=== PATIENT | female | born 1940 | race Caucasian/White ===

== ENCOUNTER 2016-10-29 14:56 | Observation (INO) | payer MEDICARE, BC ==
[~2016-10-29] VITALS: Ht 152.4 cm; Wt 101.7 kg
[~2016-10-29 14:56] MED LIST: ASPIRIN 81M81 MG/TA2 PO; ASPIRIN E.C. 8181 MG PO; BIOTIN1 POW PO; CALCIUM 500500 MG PO; CALCIUM 600/VIT1 CA1 PO; COUMADIN 22.5 MG/TAB PO; COUMADIN 5MG5 MG/TAB PO; CRESTOR 10MG10 MG PO; DETROL LA 2 MG2 MG PO; DETROL LA2 PO; DITROPAN 5MG TAB5 MG PO; FOLIC ACID 11 MG/TA1 PO; HCTZ; HCTZ 25MG TAB25 MG PO; LOPRESSOR 225 MG/TAB PO; MERIBIN5 MG PO; MULTAQ400 MG PO; NICOTINIC ACID PO; PRAVACHOL40 MG PO; TAMBOCOR50 MG PO; VISION VITAMINS1 TA1 PO; XARELTO20 MG PO; ZESTRIL 10MG10 MG PO; ZITHROMAX Z PA250 MG PO
[2016-10-29 15:41] LABS: BASO % 0.3 % (0.0-2.0); EOS % 0.9 % (0-4.0); GRAN # 1.7 (1.4-6.5); GRAN % 54.5 % (42.2-75.2); HEMATOCRIT 37.4 % (37.0-47.0); LYMPH # 0.8 (1.2-3.4); LYMPH % 23.4 % (20.0-51.0); MEAN CELL VOLUME 89 fl (80.0-100.0); MEAN CORPUSCULAR HEMOGLOBIN 31 pg (27.0-31.0); MEAN CORPUSCULAR HGB CONC 35 g/dl (33.0-37.0); MEAN PLATELET VOLUME 10.5 fl (7.4-10.4); MONO # 0.7 (0.1-0.6); MONO % 20.6 % (1.7-9.3); PLATELET COUNT 142 K/mm3 (130-400); REDCELL DISTRIBUTION WIDTH-CV 12.6 % (11.5-14.5); WHITE BLOOD COUNT 3.2 K/mm3 (4.8-10.8)
[2016-10-29 15:48] LABS: INR 2.4 (0.8-3.0); PROTHROMBIN TIME 27.9 SECONDS (9.7-12.8)
[2016-10-29 15:51] LABS: PARTIAL THROMBOPLASTIN TIME 53.4 SECONDS (26.0-37.0)
[2016-10-29 15:58] LABS: ADJUSTED CALCIUM 9.3 mg/dL (8.4-10.2); ALBUMIN 4.1 gm/dL (3.5-5.0); BILIRUBIN,TOTAL 0.5 mg/dL (0.0-1.0); CALCIUM 9.4 mg/dL (8.4-10.2); CREATININE, serum 1.01 mg/dL (0.52-1.25); POTASSIUM 3.8 mmol/L (3.4-5.0); TOTAL PROTEIN 7.2 gm/dL (6.4-8.2)
[2016-10-29 16:09] LABS: TROPONIN-I 0.022 ng/mL (0.000-0.034)
[2016-10-29] MEDS ORDERED: ISOSOURCE 1.51000 M1 PO (17:35)
[2016-10-29] MEDS ORDERED: METAGLIP 2.5 MG1 TA1 PO (17:35)
[2016-10-29] MEDS ORDERED: TOPROL XL100 MG PO (17:36)
[2016-10-29] MEDS ORDERED: ELIQUIS 5MG PO (17:36)
[2016-10-29] MEDS ORDERED: COUMADIN 22.5 MG/TAB PO (18:19)
[2016-10-29] MEDS ORDERED: COUMADIN 5MG5 MG/TAB PO (18:20)
[2016-10-29] MEDS ORDERED: TOVIAZ4 MG PO (18:21)
[2016-10-29 20:45] VITALS: BP 128/75; PULSE 106
[2016-10-29 22:49] VITALS: BP 128/75; PULSE 106; TEMP 99.6
[2016-10-30] VITALS (12 sets, daily range): BP systolic 112–146; BP diastolic 49–83; PULSE 45–103; TEMP 98.3–99.6
[2016-10-30 05:53] LABS: INR 2.4 (0.8-3.0); PROTHROMBIN TIME 27.4 SECONDS (9.7-12.8)
[2016-10-30 06:02] LABS: CALCIUM 9.1 mg/dL (8.4-10.2); CREATININE, serum 1.03 mg/dL (0.52-1.25); POTASSIUM 3.5 mmol/L (3.4-5.0)
[2016-10-30 06:30] LABS: THYROID STIMULATING HORMONE 1.83 uIU/mL (0.465-4.680)
[2016-10-30] MEDS ORDERED: TAMBOCOR 1100 MG/TAB PO (09:33)
== END 2016-10-30 11:18 | disposition home or self-care (01) ==
LOC: COL.ER 14:56 → IMCU 17:02 → MEDICAL 17:02 → IMCU 20:36
PROVIDERS: Emergency Medicine; Family Medicine
DX: I48.91 Unspecified atrial fibrillation (principal); I10 Essential (primary) hypertension; E78.5 Hyperlipidemia, unspecified; Z85.820 Personal history of malignant melanoma of skin
CPT/HCPCS: G0378; J0696; J2250; J3010; J7050

== ENCOUNTER 2016-11-11 10:46 | Emergency (ER) | payer MEDICARE, BC ==
[~2016-11-11] VITALS: Ht 172.7 cm; Wt 100.0 kg
[~2016-11-11 10:46] MED LIST changes: +ELIQUIS 5MG PO; +ISOSOURCE 1.51000 M1 PO; +METAGLIP 2.5 MG1 TA1 PO; +TAMBOCOR 1100 MG/TAB PO; +TOPROL XL100 MG PO; +TOVIAZ4 MG PO
[2016-11-11 10:52] VITALS: TEMP 97.4
[2016-11-11 11:13] LABS: BASO % 0.3 % (0.0-2.0); EOS # 0.2 (0.0-0.7); EOS % 2.7 % (0-4.0); GRAN # 3.7 (1.4-6.5); GRAN % 59.8 % (42.2-75.2); HEMATOCRIT 38.9 % (37.0-47.0); LYMPH # 1.6 (1.2-3.4); LYMPH % 25.8 % (20.0-51.0); MEAN CELL VOLUME 90 fl (80.0-100.0); MEAN CORPUSCULAR HEMOGLOBIN 30 pg (27.0-31.0); MEAN CORPUSCULAR HGB CONC 33 g/dl (33.0-37.0); MEAN PLATELET VOLUME 10.2 fl (7.4-10.4); MONO # 0.7 (0.1-0.6); MONO % 10.8 % (1.7-9.3); PLATELET COUNT 234 K/mm3 (130-400); RED BLOOD COUNT 4.33 M/mm3 (4.10-5.30); REDCELL DISTRIBUTION WIDTH-CV 12.7 % (11.5-14.5); WHITE BLOOD COUNT 6.2 K/mm3 (4.8-10.8)
[2016-11-11 11:17] LABS: INR 2.3 (0.8-3.0); PROTHROMBIN TIME 25.7 SECONDS (9.7-12.8)
[2016-11-11 11:20] LABS: PARTIAL THROMBOPLASTIN TIME 44.7 SECONDS (26.0-37.0)
[2016-11-11 11:56] LABS: ADJUSTED CALCIUM 9.2 mg/dL (8.4-10.2); ALBUMIN 4.1 gm/dL (3.5-5.0); BILIRUBIN,TOTAL 0.8 mg/dL (0.0-1.0); CALCIUM 9.3 mg/dL (8.4-10.2); CREATININE, serum 1.09 mg/dL (0.52-1.25); POTASSIUM 3.8 mmol/L (3.4-5.0); TOTAL PROTEIN 7.2 gm/dL (6.4-8.2)
[2016-11-11 12:15] LABS: TROPONIN-I 0.119 ng/mL (0.000-0.034)
[2016-11-11 13:43] VITALS: BP 109/75; PULSE 155
== END 2016-11-11 13:46 | disposition short-term general hospital (02) ==
LOC: COL.ER 10:46
PROVIDERS: Family Medicine
DX: R06.02 Shortness of breath (principal); I48.91 Unspecified atrial fibrillation; Z79.01 Long term (current) use of anticoagulants; I44.7 Left bundle-branch block, unspecified; I10 Essential (primary) hypertension; E11.9 Type 2 diabetes mellitus without complications
CPT/HCPCS: J1644; J7030

== ENCOUNTER 2017-01-05 14:26 | Emergency (ER) | payer MEDICARE, BC, OTHER ==
[~2017-01-05] VITALS: Ht 172.7 cm; Wt 95.5 kg
[2017-01-05 14:32] VITALS: TEMP 96.8
[2017-01-05 15:05] LABS: INR 2.6 (0.8-3.0); PROTHROMBIN TIME 29.7 SECONDS (9.7-12.8)
[2017-01-05 15:08] LABS: BASO % 0.7 % (0.0-2.0); EOS # 0.1 (0.0-0.7); EOS % 2.1 % (0-4.0); GRAN # 3.1 (1.4-6.5); GRAN % 54.6 % (42.2-75.2); HEMATOCRIT 39.7 % (37.0-47.0); HEMOGLOBIN 13.6 g/dl (12.5-16.0); LYMPH % 34.9 % (20.0-51.0); MEAN CELL VOLUME 89 fl (80.0-100.0); MEAN CORPUSCULAR HEMOGLOBIN 31 pg (27.0-31.0); MEAN CORPUSCULAR HGB CONC 34 g/dl (33.0-37.0); MEAN PLATELET VOLUME 10.7 fl (7.4-10.4); MONO # 0.4 (0.1-0.6); MONO % 7.5 % (1.7-9.3); PLATELET COUNT 254 K/mm3 (130-400); RED BLOOD COUNT 4.45 M/mm3 (4.10-5.30); WHITE BLOOD COUNT 5.6 K/mm3 (4.8-10.8)
[2017-01-05 15:13] LABS: ALBUMIN 4.6 gm/dL (3.5-5.0); BILIRUBIN,TOTAL 0.7 mg/dL (0.0-1.0); CALCIUM 9.5 mg/dL (8.4-10.2); CREATININE, serum 1.73 mg/dL (0.52-1.25); POTASSIUM 3.9 mmol/L (3.4-5.0); TOTAL PROTEIN 7.7 gm/dL (6.4-8.2)
[2017-01-05 15:26] LABS: TROPONIN-I 0.013 ng/mL (0.000-0.034)
[2017-01-05] MEDS ORDERED: CORDARONE200 MG/TAB PO (15:35)
[2017-01-05 16:40] LABS: PH 6 (5-8); SQUAMOUS EPITHELIAL 0-2 /hpf; URINE APPEARANCE Clear; URINE BACTERIA None Seen /hpf; URINE BILIRUBIN Negative (NEGATIVE); URINE BLOOD Negative (NEGATIVE); URINE COLOR Yellow; URINE GLUCOSE Negative (NEGATIVE); URINE KETONE Negative (NEGATIVE); URINE RBC 0-2 /hpf; URINE UROBILINOGEN Negative (NEGATIVE); URINE WBC 0-2 /hpf
[2017-01-05 18:17] VITALS: BP 128/79; PULSE 92
== END 2017-01-05 18:19 | disposition home or self-care (01) ==
LOC: COL.ER 14:26
PROVIDERS: Emergency Medicine
DX: I48.91 Unspecified atrial fibrillation (principal); I10 Essential (primary) hypertension; Z79.01 Long term (current) use of anticoagulants; N28.9 Disorder of kidney and ureter, unspecified
CPT/HCPCS: J7030

== ENCOUNTER 2017-01-07 06:31 | Day surgery (SDC) | payer MEDICARE, BC ==
[~2017-01-07] VITALS: Ht 172.8 cm; Wt 97.0 kg
[~2017-01-07 06:31] MED LIST changes: +CORDARONE200 MG/TAB PO
[2017-01-07 07:14] VITALS: BP 132/92; PULSE 76; TEMP 97
[2017-01-07 07:15] LABS: HEMOGLOBIN 12.8 g/dl (12.5-16.0); MEAN CELL VOLUME 89 fl (80.0-100.0); MEAN CORPUSCULAR HEMOGLOBIN 31 pg (27.0-31.0); MEAN CORPUSCULAR HGB CONC 35 g/dl (33.0-37.0); MEAN PLATELET VOLUME 10.8 fl (7.4-10.4); PLATELET COUNT 199 K/mm3 (130-400); RED BLOOD COUNT 4.11 M/mm3 (4.10-5.30); WHITE BLOOD COUNT 3.6 K/mm3 (4.8-10.8)
[2017-01-07 07:19] LABS: HEMATOCRIT 36.6 % (37.0-47.0)
[2017-01-07 07:22] LABS: INR 3.2 (0.8-3.0); PROTHROMBIN TIME 36.6 SECONDS (9.7-12.8)
[2017-01-07 07:25] LABS: PARTIAL THROMBOPLASTIN TIME 37.1 SECONDS (26.0-37.0)
[2017-01-07 07:33] LABS: CALCIUM 9.1 mg/dL (8.4-10.2); CREATININE, serum 1.04 mg/dL (0.52-1.25); POTASSIUM 3.8 mmol/L (3.4-5.0)
[2017-01-07 09:00] VITALS: BP 132/56; PULSE 47
[2017-01-07 09:30] VITALS: BP 134/64; PULSE 44
== END 2017-01-07 10:13 | disposition home or self-care (01) ==
LOC: COL.CAR 06:31
PROVIDERS: Internal Medicine Cardiovascular Disease
DX: I48.0 Paroxysmal atrial fibrillation (principal); I08.3 Combined rheumatic disorders of mitral, aortic and tricuspid valves; R00.1 Bradycardia, unspecified; I10 Essential (primary) hypertension; E78.2 Mixed hyperlipidemia; Z82.49 Family history of ischemic heart disease and other diseases of the circulatory system; Z86.73 Personal history of transient ischemic attack (TIA), and cerebral infarction without residual deficits; Z79.899 Other long term (current) drug therapy; Z79.01 Long term (current) use of anticoagulants
CPT/HCPCS: G9654; J2250; J2704; J3010

== ENCOUNTER → 2017-05-08 | Outpatient (CLI) | payer MEDICARE, BC | LOC: MC.RAD 04-29 13:00 | DX: Z12.31 Encounter for screening mammogram for malignant neoplasm of breast (principal) ==

== ENCOUNTER → 2017-09-03 | Outpatient (CLI) | payer MEDICARE, BC | LOC: COL.RAD 12:34 | DX: N28.1 Cyst of kidney, acquired (principal) ==

== ENCOUNTER → 2018-05-11 | Outpatient (CLI) | payer MEDICARE, BC | LOC: MC.RAD 08:33 | DX: Z12.31 Encounter for screening mammogram for malignant neoplasm of breast (principal) ==

== ENCOUNTER 2018-06-28 11:46 | Inpatient (IN) | payer MEDICARE, BC ==
[~2018-06-28] VITALS: Ht 172.7 cm; Wt 100.1 kg
[2018-06-28] MEDS ORDERED: ELIQUIS 5MG PO (12:34)
[2018-06-28] MEDS ORDERED: OYSTER SHELL C500 MG PO (12:34)
[2018-06-28] MEDS ORDERED: CRANBERRY500 M3 PO (12:35)
[2018-06-28 12:40] LABS: BASO % 0.7 % (0.0-2.0); EOS # 0.2 (0.0-0.7); EOS % 4.3 % (0-4.0); GRAN # 2.6 (1.4-6.5); GRAN % 63.9 % (42.2-75.2); HEMOGLOBIN 12.7 g/dl (12.5-16.0); LYMPH # 0.9 (1.2-3.4); MEAN CELL VOLUME 91 fl (80.0-100.0); MEAN CORPUSCULAR HEMOGLOBIN 31 pg (27.0-31.0); MEAN CORPUSCULAR HGB CONC 34 g/dl (33.0-37.0); MEAN PLATELET VOLUME 10.5 fl (7.4-10.4); MONO # 0.4 (0.1-0.6); MONO % 8.9 % (1.7-9.3); PLATELET COUNT 193 K/mm3 (130-400); RED BLOOD COUNT 4.06 M/mm3 (4.10-5.30); REDCELL DISTRIBUTION WIDTH-CV 12.4 % (11.5-14.5)
[2018-06-28 12:50] LABS: COLLECTION METHOD CLEAN CATCH
[2018-06-28 12:52] LABS: ALBUMIN 4.3 gm/dL (3.5-5.0); BILIRUBIN,TOTAL 0.5 mg/dL (0.0-1.0); CALCIUM 9.4 mg/dL (8.4-10.2); CREATININE, serum 1.09 mg/dL (0.52-1.25); POTASSIUM 3.7 mmol/L (3.4-5.0); TOTAL PROTEIN 6.9 gm/dL (6.4-8.2)
[2018-06-28 13:03] LABS: TROPONIN-I 0.031 ng/mL (0.000-0.034)
[2018-06-28 13:07] LABS: PH 7 (5-8); SQUAMOUS EPITHELIAL None Seen /hpf; URINE APPEARANCE Hazy; URINE BACTERIA None Seen /hpf; URINE BILIRUBIN Negative (NEGATIVE); URINE BLOOD Negative (NEGATIVE); URINE COLOR Yellow; URINE GLUCOSE Negative (NEGATIVE); URINE KETONE Trace (NEGATIVE); URINE LEUKOCYTE ESTERASE 2+ (NEGATIVE); URINE NITRATE Negative (NEGATIVE); URINE PROTEIN(semi-quant) Negative (NEGATIVE); URINE RBC 0-2 /hpf; URINE UROBILINOGEN Negative (NEGATIVE)
[2018-06-28 13:13] LABS: INR 1.3 (0.8-3.0); PROTHROMBIN TIME 14.5 SECONDS (9.7-12.8)
[2018-06-28 13:15] LABS: PARTIAL THROMBOPLASTIN TIME 41.4 SECONDS (26.0-37.0)
[2018-06-28 19:50] VITALS: BP 148/63; PULSE 57; TEMP 97
[2018-06-29] VITALS (7 sets, daily range): BP systolic 114–136; BP diastolic 38–58; PULSE 48–59; TEMP 97.5–98.2
[2018-06-29 06:30] LABS: BASO % 0.5 % (0.0-2.0); EOS # 0.2 (0.0-0.7); EOS % 5.3 % (0-4.0); GRAN % 47.7 % (42.2-75.2); HEMOGLOBIN 10.8 g/dl (12.5-16.0); LYMPH # 1.5 (1.2-3.4); LYMPH % 35.7 % (20.0-51.0); MEAN CELL VOLUME 92 fl (80.0-100.0); MEAN CORPUSCULAR HEMOGLOBIN 32 pg (27.0-31.0); MEAN CORPUSCULAR HGB CONC 35 g/dl (33.0-37.0); MEAN PLATELET VOLUME 10.4 fl (7.4-10.4); MONO # 0.4 (0.1-0.6); MONO % 10.6 % (1.7-9.3); PLATELET COUNT 159 K/mm3 (130-400); RED BLOOD COUNT 3.41 M/mm3 (4.10-5.30); REDCELL DISTRIBUTION WIDTH-CV 12.6 % (11.5-14.5)
[2018-06-29 06:35] LABS: HEMATOCRIT 31.2 % (37.0-47.0)
[2018-06-29 07:01] LABS: CALCIUM 8.9 mg/dL (8.4-10.2); CREATININE, serum 1.08 mg/dL (0.52-1.25); MAGNESIUM 1.8 mg/dL (1.6-2.3); POTASSIUM 3.5 mmol/L (3.4-5.0)
[2018-06-30 00:49] VITALS: BP 135/60; PULSE 48; TEMP 97
[2018-06-30 04:25] VITALS: BP 150/60; PULSE 50; TEMP 97
[2018-06-30 05:13] LABS: BASO % 0.5 % (0.0-2.0); EOS # 0.3 (0.0-0.7); EOS % 6.5 % (0-4.0); GRAN # 1.6 (1.4-6.5); GRAN % 41.8 % (42.2-75.2); HEMATOCRIT 33.3 % (37.0-47.0); HEMOGLOBIN 11.3 g/dl (12.5-16.0); LYMPH # 1.6 (1.2-3.4); LYMPH % 40.8 % (20.0-51.0); MEAN CELL VOLUME 92 fl (80.0-100.0); MEAN CORPUSCULAR HEMOGLOBIN 31 pg (27.0-31.0); MEAN CORPUSCULAR HGB CONC 34 g/dl (33.0-37.0); MEAN PLATELET VOLUME 10.2 fl (7.4-10.4); MONO # 0.4 (0.1-0.6); MONO % 10.1 % (1.7-9.3); PLATELET COUNT 159 K/mm3 (130-400); RED BLOOD COUNT 3.63 M/mm3 (4.10-5.30); REDCELL DISTRIBUTION WIDTH-CV 12.5 % (11.5-14.5)
[2018-06-30 05:35] LABS: CALCIUM 8.6 mg/dL (8.4-10.2); CREATININE, serum 1.09 mg/dL (0.52-1.25); MAGNESIUM 1.8 mg/dL (1.6-2.3); POTASSIUM 3.6 mmol/L (3.4-5.0)
[2018-06-30 08:00] VITALS: BP 148/63; PULSE 44; TEMP 98
[2018-06-30 10:13] LABS: TSH w REFLEX 7.25 uIU/mL (0.465-4.680)
[2018-06-30 11:30] VITALS: BP 139/41; PULSE 48; TEMP 97.9
[2018-06-30] MEDS ORDERED: OMNICEF 300MG300 MG PO (13:52)
[2018-06-30] MEDS ORDERED: TAMBOCOR50 MG PO (13:52)
== END 2018-06-30 14:48 | disposition home or self-care (01) | DRG 309 ==
LOC: COL.ER 11:46 → MEDICAL 14:54 → EU 14:54 → COL.ER 14:54 → MEDICAL 16:19 → EU 16:19 → IMCU 06-29 21:38 → EU 06-29 21:38 → IMCU 06-30 11:30 → MEDICAL 06-30 11:30 → IMCU 06-30 14:48 → MEDICAL 06-30 14:48
PROVIDERS: Emergency Medicine; Hospitalist; Physician Assistant
DX: I48.0 Paroxysmal atrial fibrillation (principal); N39.0 Urinary tract infection, site not specified; I10 Essential (primary) hypertension; Z23 Encounter for immunization; Z79.01 Long term (current) use of anticoagulants; E78.5 Hyperlipidemia, unspecified; Z86.73 Personal history of transient ischemic attack (TIA), and cerebral infarction without residual deficits; R32 Unspecified urinary incontinence; Z85.828 Personal history of other malignant neoplasm of skin; M54.9 Dorsalgia, unspecified; W18.30XA Fall on same level, unspecified, initial encounter; I08.3 Combined rheumatic disorders of mitral, aortic and tricuspid valves
CPT/HCPCS: OP; 99222-AI; 99232-AI; 99239; A4216; J0696; J7030

== ENCOUNTER 2018-08-17 23:14 | Inpatient (IN) | payer MEDICARE, BC ==
[~2018-08-17] VITALS: Ht 172.7 cm; Wt 100.9 kg
[~2018-08-17 23:14] MED LIST changes: +CRANBERRY500 M3 PO; +OMNICEF 300MG300 MG PO; +OYSTER SHELL C500 MG PO
[2018-08-18] VITALS (379 sets, daily range): BP systolic 123–152; BP diastolic 63–81; PULSE 82–109; TEMP 97.7–99.2; O2SAT 91–99
[2018-08-18 00:02] LABS: BASO % 0.6 % (0.0-2.0); EOS # 0.3 (0.0-0.7); EOS % 5.4 % (0-4.0); GRAN # 2.3 (1.4-6.5); GRAN % 47.2 % (42.2-75.2); HEMOGLOBIN 11.5 g/dl (12.5-16.0); LYMPH # 1.6 (1.2-3.4); LYMPH % 32.6 % (20.0-51.0); MEAN CELL VOLUME 94 fl (80.0-100.0); MEAN CORPUSCULAR HEMOGLOBIN 31 pg (27.0-31.0); MEAN CORPUSCULAR HGB CONC 33 g/dl (33.0-37.0); MEAN PLATELET VOLUME 10.2 fl (7.4-10.4); MONO # 0.7 (0.1-0.6); PLATELET COUNT 201 K/mm3 (130-400); RED BLOOD COUNT 3.74 M/mm3 (4.10-5.30)
[2018-08-18 00:10] LABS: ALBUMIN 4.1 gm/dL (3.5-5.0); BILIRUBIN,TOTAL 0.3 mg/dL (0.0-1.0); CALCIUM 9.3 mg/dL (8.4-10.2); CREATININE, serum 1.27 mg/dL (0.52-1.25); POTASSIUM 3.9 mmol/L (3.4-5.0); TOTAL PROTEIN 6.9 gm/dL (6.4-8.2)
[2018-08-18 00:12] LABS: HEMATOCRIT 35.1 % (37.0-47.0)
[2018-08-18 00:16] LABS: INR 1.2 (0.8-3.0)
[2018-08-18 00:25] LABS: TROPONIN-I 0.367 ng/mL (0.000-0.034)
[2018-08-18] MEDS ORDERED: CARDIZEM 30MG T30 MG PO (02:10)
[2018-08-18 06:19] LABS: BASO % 0.7 % (0.0-2.0); EOS # 0.3 (0.0-0.7); EOS % 5.4 % (0-4.0); GRAN # 2.2 (1.4-6.5); GRAN % 48.5 % (42.2-75.2); HEMOGLOBIN 10.8 g/dl (12.5-16.0); LYMPH # 1.5 (1.2-3.4); LYMPH % 31.7 % (20.0-51.0); MEAN CELL VOLUME 93 fl (80.0-100.0); MEAN CORPUSCULAR HEMOGLOBIN 31 pg (27.0-31.0); MEAN CORPUSCULAR HGB CONC 33 g/dl (33.0-37.0); MONO # 0.6 (0.1-0.6); MONO % 13.5 % (1.7-9.3); PLATELET COUNT 184 K/mm3 (130-400)
[2018-08-18 06:22] LABS: HEMATOCRIT 32.4 % (37.0-47.0)
[2018-08-18 06:36] LABS: CALCIUM 9.1 mg/dL (8.4-10.2); CREATININE, serum 1.05 mg/dL (0.52-1.25); MAGNESIUM 1.9 mg/dL (1.6-2.3); POTASSIUM 3.8 mmol/L (3.4-5.0)
[2018-08-18 06:54] LABS: TROPONIN-I 6 HR POST INITIAL 0.324 ng/mL (0.000-0.034)
[2018-08-18 12:54] LABS: INR 1.2 (0.8-3.0); PROTHROMBIN TIME 14.1 SECONDS (9.7-12.8)
[2018-08-18 13:08] LABS: ALBUMIN 3.5 gm/dL (3.5-5.0); BILIRUBIN,TOTAL 0.1 mg/dL (0.0-1.0); TOTAL PROTEIN 6.2 gm/dL (6.4-8.2)
[2018-08-19] VITALS (128 sets, daily range): BP systolic 87–167; BP diastolic 39–71; PULSE 34–78; TEMP 98.4; O2SAT 93–100
[2018-08-19 07:09] LABS: BASO # 0.1 (0.0-0.2); BASO % 0.6 % (0.0-2.0); EOS # 0.2 (0.0-0.7); EOS % 1.4 % (0-4.0); GRAN # 8.3 (1.4-6.5); GRAN % 78.4 % (42.2-75.2); HEMATOCRIT 40.5 % (37.0-47.0); LYMPH # 1.3 (1.2-3.4); LYMPH % 11.9 % (20.0-51.0); MEAN CELL VOLUME 92 fl (80.0-100.0); MEAN CORPUSCULAR HEMOGLOBIN 31 pg (27.0-31.0); MEAN CORPUSCULAR HGB CONC 34 g/dl (33.0-37.0); MONO # 0.8 (0.1-0.6); MONO % 7.3 % (1.7-9.3); PLATELET COUNT 277 K/mm3 (130-400); REDCELL DISTRIBUTION WIDTH-CV 12.7 % (11.5-14.5)
[2018-08-19 07:14] LABS: HEMOGLOBIN 13.6 g/dl (12.5-16.0)
[2018-08-19 07:18] LABS: CALCIUM 9.9 mg/dL (8.4-10.2); CREATININE, serum 1.05 mg/dL (0.52-1.25); MAGNESIUM 1.9 mg/dL (1.6-2.3); POTASSIUM 4.4 mmol/L (3.4-5.0)
== END 2018-08-19 07:12 | disposition short-term general hospital (02) | DRG 309 ==
LOC: COL.ER 23:14 → ICU 08-18 00:35 → MEDICAL 08-18 15:43 → ICU 08-18 15:43 → MEDICAL 08-18 16:20 → ICU 08-19 03:32 → MEDICAL 08-19 03:32 → ICU 08-19 07:12
PROVIDERS: Emergency Medicine; Hospitalist; Internal Medicine Cardiovascular Disease; Nurse Practitioner
DX: I48.91 Unspecified atrial fibrillation (principal); N17.9 Acute kidney failure, unspecified; I12.9 Hypertensive chronic kidney disease with stage 1 through stage 4 chronic kidney disease, or unspecified chronic kidney disease; N18.9 Chronic kidney disease, unspecified; E78.5 Hyperlipidemia, unspecified; Z79.01 Long term (current) use of anticoagulants; I08.3 Combined rheumatic disorders of mitral, aortic and tricuspid valves; R32 Unspecified urinary incontinence; I46.2 Cardiac arrest due to underlying cardiac condition; R00.1 Bradycardia, unspecified; T44.7X5A Adverse effect of beta-adrenoreceptor antagonists, initial encounter
CPT/HCPCS: OP; 99222-AI; 99239; J1265; J7030

== ENCOUNTER 2018-09-02 07:28 | Day surgery (SDC) | payer MEDICARE, BC ==
[~2018-09-02] VITALS: Ht 172.8 cm; Wt 101.0 kg
[2018-09-02] VITALS (7 sets, daily range): BP systolic 132–158; BP diastolic 57–75; PULSE 60–73; TEMP 97.4–97.5
[~2018-09-02 07:28] MED LIST changes: +CARDIZEM 30MG T30 MG PO
[2018-09-02] MEDS ORDERED: CALCIUM 600MG+D1 TAB PO (07:47)
[2018-09-02 08:07] LABS: HEMOGLOBIN 10.8 g/dl (12.5-16.0); MEAN CELL VOLUME 93 fl (80.0-100.0); MEAN CORPUSCULAR HEMOGLOBIN 30 pg (27.0-31.0); MEAN CORPUSCULAR HGB CONC 33 g/dl (33.0-37.0); MEAN PLATELET VOLUME 9.9 fl (7.4-10.4); PLATELET COUNT 192 K/mm3 (130-400); RED BLOOD COUNT 3.55 M/mm3 (4.10-5.30); REDCELL DISTRIBUTION WIDTH-CV 12.8 % (11.5-14.5)
[2018-09-02] MEDS ORDERED: CARTIA XT120 MG PO (08:07)
[2018-09-02 08:09] LABS: HEMATOCRIT 33.1 % (37.0-47.0)
[2018-09-02 08:11] LABS: INR 1.7 (0.8-3.0); PROTHROMBIN TIME 18.8 SECONDS (9.7-12.8)
[2018-09-02] MEDS ORDERED: CORDARONE200 MG/TAB PO (08:11)
[2018-09-02] MEDS ORDERED: PROTONIX 40MG T40 MG PO (08:12)
[2018-09-02] MEDS ORDERED: LOPRESSOR 225 MG/TAB PO (08:12)
[2018-09-02 08:22] LABS: CALCIUM 9.4 mg/dL (8.4-10.2); CREATININE, serum 1.14 mg/dL (0.52-1.25); POTASSIUM 3.8 mmol/L (3.4-5.0)
--- NOTE | 2018-09-02 09:10 | NUR ---
Pt anil CV well. Pt on O2 1 L per NC. at bedside.
--- NOTE | 2018-09-02 10:40 | NUR ---
Pt has ambulated and anil Po intake s n/v. PIV removed with catheter intact.
--- NOTE | 2018-09-02 10:45 | NUR ---
Pt discharged per w/c by nurse with .
== END 2018-09-02 12:17 | disposition home or self-care (01) ==
LOC: COL.CAR 07:28
PROVIDERS: Internal Medicine Cardiovascular Disease
DX: I48.1 Persistent atrial fibrillation (principal); I08.3 Combined rheumatic disorders of mitral, aortic and tricuspid valves; I10 Essential (primary) hypertension; E78.2 Mixed hyperlipidemia; Z86.73 Personal history of transient ischemic attack (TIA), and cerebral infarction without residual deficits; Z79.01 Long term (current) use of anticoagulants; Z79.899 Other long term (current) drug therapy; Z82.49 Family history of ischemic heart disease and other diseases of the circulatory system; Z80.9 Family history of malignant neoplasm, unspecified; Z82.3 Family history of stroke; Z95.0 Presence of cardiac pacemaker
CPT/HCPCS: J2704; J7030

== ENCOUNTER 2019-12-04 15:54 | Inpatient (IN) | payer MEDICARE, BC ==
[2019-12-04] VITALS (172 sets, daily range): BP systolic 143; BP diastolic 89; PULSE 82; TEMP 97.8; O2SAT 83–100
[~2019-12-04] VITALS: Ht 172.7 cm; Wt 101.7 kg
[~2019-12-04 15:54] MED LIST changes: +CALCIUM 600MG+D1 TAB PO; +CARTIA XT120 MG PO; +PROTONIX 40MG T40 MG PO
[2019-12-04 16:52] LABS: BASO % 0.4 % (0.0-2.0); EOS # 0.2 (0.0-0.7); EOS % 2.8 % (0-4.0); GRAN # 3.6 (1.4-6.5); GRAN % 66.3 % (42.2-75.2); HEMOGLOBIN 10.3 g/dl (12.5-16.0); LYMPH # 0.9 (1.2-3.4); LYMPH % 17.6 % (20.0-51.0); MEAN CELL VOLUME 90 fl (80.0-100.0); MEAN CORPUSCULAR HEMOGLOBIN 29 pg (27.0-31.0); MEAN CORPUSCULAR HGB CONC 32 g/dl (33.0-37.0); MEAN PLATELET VOLUME 10.1 fl (7.4-10.4); MONO # 0.7 (0.1-0.6); MONO % 12.5 % (1.7-9.3); PLATELET COUNT 205 K/mm3 (130-400); RED BLOOD COUNT 3.59 M/mm3 (4.10-5.30); REDCELL DISTRIBUTION WIDTH-CV 13.4 % (11.5-14.5)
[2019-12-04 16:53] LABS: HEMATOCRIT 32.4 % (37.0-47.0)
[2019-12-04 16:57] LABS: INR 1.5 (0.8-3.0)
[2019-12-04 17:03] LABS: ALANINE AMINOTRANSFERASE 47 U/L (4-34); ALBUMIN 3.9 gm/dL (3.5-5.0); ALKALINE PHOSPHATASE 79 U/L (50-136); ANION GAP 8 mmol/L (7-16); AST,SGOT 51 U/L (15-37); BILIRUBIN,TOTAL 0.4 mg/dL (0.0-1.0); BLOOD UREA NITROGEN 31 mg/dL (7-17); CALCIUM 8.9 mg/dL (8.4-10.2); CARBON DIOXIDE 23 mmol/L (22-30); CHLORIDE 104 mmol/L (98-107); CREATININE, serum 1.23 (0.52-1.25); GLUCOSE 105 mg/dL (74-106); SODIUM 136 mmol/L (137-145); TOTAL PROTEIN 6.3 gm/dL (6.4-8.2)
[2019-12-04 17:15] LABS: TROPONIN-I < 0.012 ng/mL (0.000-0.035)
[2019-12-04 20:12] LABS: MAGNESIUM 2.1 mg/dL (1.6-2.3)
[2019-12-04 20:43] LABS: TSH w REFLEX 2.23 uIU/mL (0.465-4.680)
--- NOTE | 2019-12-04 20:45 | NUR ---
Arrived to the unit via stretcher. Alert and oriented. Able to self transfer to [facility] bed. Reports mild shortness of breath which increases with exertion. Placed on 2L NC for comfort. Assessment completed. Call light left within reach.
[2019-12-04] MEDS ORDERED: MULTIPLE VITAMI1 CAP PO (21:06)
[2019-12-04] MEDS ORDERED: NATURE'S BLE1000 MCG (21:07)
[2019-12-04] MEDS ORDERED: SYNTHROID 0.0.025 MG PO (21:09)
[2019-12-05] VITALS (1208 sets, daily range): BP systolic 117–147; BP diastolic 47–84; PULSE 70–79; TEMP 97.5–98.6; O2SAT 80–100
[2019-12-05 00:43] LABS: C-REACTIVE PROTEIN 1.2 mg/dL (0.0-0.9)
--- NOTE | 2019-12-05 07:15 | NUR ---
Report given to TANVIR Pascal and TANVIR Wray. Patient care transfered.
[2019-12-05 07:17] LABS: BASO % 0.3 % (0.0-2.0); EOS % 0.2 % (0-4.0); GRAN # 4.5 (1.4-6.5); GRAN % 75.1 % (42.2-75.2); LYMPH # 0.8 (1.2-3.4); MEAN CELL VOLUME 91 fl (80.0-100.0); MEAN CORPUSCULAR HGB CONC 32 g/dl (33.0-37.0); MEAN PLATELET VOLUME 10.5 fl (7.4-10.4); MONO # 0.6 (0.1-0.6); MONO % 10.1 % (1.7-9.3); PLATELET COUNT 181 K/mm3 (130-400); RED BLOOD COUNT 3.33 M/mm3 (4.10-5.30); REDCELL DISTRIBUTION WIDTH-CV 13.3 % (11.5-14.5)
[2019-12-05 07:23] LABS: ALBUMIN 3.6 gm/dL (3.5-5.0); BILIRUBIN,TOTAL 0.5 mg/dL (0.0-1.0); CALCIUM 8.8 mg/dL (8.4-10.2); CREATININE, serum 1.22 (0.52-1.25); MAGNESIUM 2.2 mg/dL (1.6-2.3)
[2019-12-05 07:30] LABS: HEMATOCRIT 30.3 % (37.0-47.0); HEMOGLOBIN 9.6 g/dl (12.5-16.0); MEAN CORPUSCULAR HEMOGLOBIN 29 pg (27.0-31.0)
--- NOTE | 2019-12-05 13:05 | NUR ---
Sw contacted patient by phone to conduct interview. PAtient indicated that she currently resides in [facility] with her Magali [phone] as care support and EMr. Patient also indicated that she had a DPOA. Patient reports that she does not utilize any DME,a nd that her PCP is Dr. Butt, with no upcoming appointments at this time. Patient reports that she gets her emdications from [facility] with no complications. Patient declined any services at this time.
--- NOTE | 2019-12-05 19:45 | NUR ---
RECEIVED REPORT FROM TANVIR SIFUENTES. PT SITTING UP IN BED WATCHING TV ON 2L VIA NC. CALL LIGHT WITHIN REACH. VSS.
[2019-12-06] VITALS (1074 sets, daily range): BP systolic 121–150; BP diastolic 57–80; PULSE 69–73; TEMP 97.8–98.2; O2SAT 78–100
[2019-12-06 07:00] LABS: CALCIUM 8.8 mg/dL (8.4-10.2); CREATININE, serum 1.39 (0.52-1.25)
[2019-12-06 07:02] LABS: POTASSIUM 2.9 mmol/L (3.4-5.0)
--- NOTE | 2019-12-06 07:27 | NUR ---
This nurse recieved report from TANVIR Salmon. Patient is in bed and resting comfortably. Call light and bedside table are within reach.
[2019-12-07] VITALS (346 sets, daily range): BP systolic 129–161; BP diastolic 65–85; PULSE 69–80; TEMP 97.8–98.3; O2SAT 84–100
[2019-12-07 04:54] LABS: ALBUMIN 3.3 gm/dL (3.5-5.0); BILIRUBIN,TOTAL 0.4 mg/dL (0.0-1.0); CALCIUM 8.7 mg/dL (8.4-10.2); CREATININE, serum 1.52 (0.52-1.25); POTASSIUM 3.7 mmol/L (3.4-5.0); TOTAL PROTEIN 5.6 gm/dL (6.4-8.2)
--- NOTE | 2019-12-07 07:30 | NUR ---
Report recieved from overnight RN. Patient sitting up in bed, awake and alert. Denies pain or nausea. Patient is reporting frequent bowel movements, loose in nature. Heart sounds irregular, lung sounds clear diminished in bilateral bases. Bowel sounds hypoactive. Pitting edema noted in bilateral lower extremities. IV to left AC in place, saline locked. Per Dr. Angeles keep patient NPO in order to recieve ariane scan today. Patient in agreement. Patient ambulates to bathroom independently. Vital signs stable on room air. Will continue to monitor.
--- NOTE | 2019-12-07 10:20 | NUR ---
Patient brought down to Radiology via wheel chair. Stool sample obtained, sent to lab per MD orders.
--- NOTE | 2019-12-07 11:45 | NUR ---
Patient brought back to [facility] 12 via wheelchair. Placed on monitors, stable. Patient is able to eat and drink at this time. Lunch tray ordered per MD. Will continue to monitor.
--- NOTE | 2019-12-07 11:51 | NUR ---
JIGNESH met with the patient to follow up and to review discharge plan. The patient had just returned from a test. She states that she is doing okay. She reports that she was able to get up and take a walk with PT this morning. She plans to return back home with her . The patient is to be tranferred up to the medical floor today. No other additional needs at this time.
[2019-12-07 12:25] LABS: CLOSTRIDIUM DIFF A/B NEG; CLOSTRIDIUM DIFF A/B INTERP No C.diff present
[2019-12-08] VITALS (233 sets, daily range): BP systolic 128–157; BP diastolic 64–109; PULSE 70–104; TEMP 97.4–98.7; O2SAT 78–100
[2019-12-08 05:12] LABS: BASO % 0.5 % (0.0-2.0); EOS % 0.5 % (0-4.0); GRAN # 5.6 (1.4-6.5); GRAN % 71.9 % (42.2-75.2); HEMOGLOBIN 10.2 g/dl (12.5-16.0); LYMPH # 1.4 (1.2-3.4); MEAN CELL VOLUME 90 fl (80.0-100.0); MEAN CORPUSCULAR HEMOGLOBIN 29 pg (27.0-31.0); MEAN CORPUSCULAR HGB CONC 32 g/dl (33.0-37.0); MEAN PLATELET VOLUME 10.4 fl (7.4-10.4); MONO # 0.7 (0.1-0.6); MONO % 8.8 % (1.7-9.3); PLATELET COUNT 212 K/mm3 (130-400); RED BLOOD COUNT 3.57 M/mm3 (4.10-5.30); REDCELL DISTRIBUTION WIDTH-CV 13.4 % (11.5-14.5)
[2019-12-08 05:13] LABS: HEMATOCRIT 32.2 % (37.0-47.0)
[2019-12-08 05:14] LABS: INR 1.6 (0.8-3.0); PROTHROMBIN TIME 18.6 SECONDS (9.7-12.8)
[2019-12-08 05:17] LABS: PARTIAL THROMBOPLASTIN TIME 36.1 SECONDS (26.0-37.0)
[2019-12-08 05:24] LABS: CALCIUM 9.3 mg/dL (8.4-10.2); CREATININE, serum 1.25 (0.52-1.25); POTASSIUM 3.6 mmol/L (3.4-5.0)
--- NOTE | 2019-12-08 07:00 | NUR ---
Bedside shift report received from TANVIR Tamayo. Patient is sitting in bed in no apparent distress, vital signs stable, full assessment completed. Bed in lowest position. Side rails up x3. Call light and personal items within reach.
--- NOTE | 2019-12-08 10:26 | NUR ---
Report called to TANVIR Boyd at this time.
--- NOTE | 2019-12-08 11:21 | NUR ---
Patient is being transferred to [facility] via wheelchair by RN with no complications. Patient on heart monitor, vital signs stable. Care handed over at this time.
[2019-12-08 13:50] LABS: ANA SCREEN with REFLEX Negative (Negative)
--- NOTE | 2019-12-08 18:33 | NUR ---
PT HAS HAD UNEVENTFUL AFTERNOON SINCE COMING UP TO THE FLOOR. HAS C/O FEELING WEAK, HOPEFUL ON GETTING HER STRENGTH BULIT BACK UP, DISCUSSED THIS WITH HER THAT ITS A SLOW PROCESS TO GET BACK ON HER FEET BEFORE. HEART CATH PLANNED FOR TOMORROW. NO ISSUES OR CONSERNS VOICED THIS SHIFT. WAS ABLE TO TAKE A NAP THIS AFTERNOON, WHICH SHE VOICED THAT SHE WAS HAPPY SHE WAS ABLE TO GET.
--- NOTE | 2019-12-08 19:20 | NUR ---
Patient assessed at this time. Alert and oriented x 4, and able to make needs known. Denies having pain and discomfort at this time. 1/2 NS running at 100 ml/hr per orders to peripheral IV to left AC. Reports SOB and dyspnea with exertion. On oxygen at 2 L/min via NC. Denies SOB at rest. Respirations even and unlabored. HRR. Telemetry in place. Capillary refill less than 3 seconds. Non-tenting skin turgor. BSAx4. Abdomen soft and non-tender. 1+ edema BLE. Voices no questions, needs, or concerns at this time. Resting in bed with call light within reach. Aware that she can only have clear liquids after midnight, and NPO after 0600 per oders for heart cath tomorrow at 1300.
--- NOTE | 2019-12-08 19:55 | NUR ---
Patient requested PRN Imodium for diarrhea, and PRN Tylenol for mild headache. Given as requested. Voices no further questions, needs, or concerns at this time. Resting in bed with call light within reach.
[2019-12-08 20:38] LABS: C-ANCA 18 U/mL (0-99)
--- NOTE | 2019-12-09 01:39 | NUR ---
Report given to TANVIR Drew.
--- NOTE | 2019-12-09 03:20 | NUR ---
in to check on the patient, she complained of being short of breathe. upon checking her O2 reading she was 95-96% on 2L NC. lungs were clear. Hernesto Gurrola notified. fluids were d/c'ed and a dose of lasix was given. patient stated that she is feeling better. heart rate was initially over 100 bpm but is maintaining that.
[2019-12-09 03:44] VITALS: BP 123/67; PULSE 105; TEMP 97.5
--- NOTE | 2019-12-09 05:32 | NUR ---
REPORT RECIEVED FROM THE COUNSELOR/ART THERAPIST NURSE THAT WAS CARING FOR THE PATIENT. SHE WAS SLEEPING FINE UNTIL SHE GOT SHORT OF BREATH. OXYGEN SATS WERE 95-96%. RESPIRATIONS WERE 20-22. A BENOINT NOTIFIED - FLUIDS D/C AND ONE TIME ORDER OF LASIX WAS GIVEN. PATIENT STATED THAT SHE IS FEELING BETTER NOW. HER WEIGHT WAS 101.5 KG. PATIENT HAS BEEN ABLE TO REST SINCE THIS EPISODE. WILL REPORT OFF TO DAY SHIFT UPON THEIR ARRIVAL.
[2019-12-09 07:34] VITALS: BP 130/58; PULSE 77; TEMP 97.7
[2019-12-09 08:52] LABS: ALBUMIN 3.8 gm/dL (3.5-5.0); BILIRUBIN,TOTAL 0.8 mg/dL (0.0-1.0); CALCIUM 8.8 mg/dL (8.4-10.2); CREATININE, serum 1.62 (0.52-1.25); POTASSIUM 3.6 mmol/L (3.4-5.0); TOTAL PROTEIN 6.5 gm/dL (6.4-8.2)
--- NOTE | 2019-12-09 09:59 | NUR ---
Assessment completed and charted. Medications administered per OCT. Pt sitting in bed, A&O, independent in room. Pt currently on 2L NC, talks in short sentences, states she does has have SOB. LAC INT IV flushes w/o complications. Pt denies any other chest pain, N/V/D, palpitations. Stated she had some night sweats overnight d/t SOB. Pt to have heart cath this afternoon, consent signed and on chart. No further needs expressed at this time.
--- NOTE | 2019-12-09 10:34 | NUR ---
Pt placed on bipap by RT per Dr. Schneider. Pt to be on bipap prior/during and after heart cath for a couple of hours and then overnight. pt tolerating well at this time, sleeping in bed.
[2019-12-09 11:04] VITALS: BP 132/68; PULSE 79; TEMP 97.8
[2019-12-09 13:35] LABS: ANGIOTENSIN CONVERTING ENZYME 9 U/L (16 - 85)
--- NOTE | 2019-12-09 14:35 | NUR ---
Pt talked with cardiology in regards to heart cathn rescheduled for tomorrow 12/10/19. Pt off bipap at this time and states it's not "comfortable" and stated she felt like she was panicking. This nurse discussed with MARCIE Saldaña. PRN ativan order placed. Pt was then on 2L NC. Bipap to be worn intermittently, tonight when sleeping, and for heart cath tomorrow. discussed with pt who verbalized understanding, RT has discussed with pt as well. Informed pt about having ativan. Pt stated agreed to try bipap again while taking nap and see how she tolerates and then may try ativan tonight if it doesn't go well. No further needs at this time.
--- NOTE | 2019-12-09 16:17 | NUR ---
SW met with the patient to review discharge plan. The patient appeared sleepy and was using the bipap. SW discussed home health for further education on her diagnosis, PT, and OT. The patient nodded her head no and states that she is not interested in home health at this time. SW to continue to follow.
[2019-12-09 17:02] VITALS: BP 103/46; PULSE 69; TEMP 98.1
[2019-12-09 19:58] VITALS: BP 85/42; PULSE 74; TEMP 97.9
--- NOTE | 2019-12-09 23:08 | NUR ---
patient is tolerating bipap
[2019-12-10] VITALS (18 sets, daily range): BP systolic 102–149; BP diastolic 45–87; PULSE 68–83; TEMP 97.8–98.9
--- NOTE | 2019-12-10 01:00 | NUR ---
PATIENT IS OFF OF BIPAP
--- NOTE | 2019-12-10 02:34 | NUR ---
PATIENT IS REQUESTING TO BE BACK ON BIPAP. ATIVAN WAS ALSO GIVEN FOR ANXIETY
--- NOTE | 2019-12-10 05:08 | NUR ---
PATIENT HAS BEEN UP AND DOWN MOST OF THE NIGHT WITH BEING ABLE AND NOT BEING ABLE TO WEAR THE BIPAP. TEGADERM WAS PLACED OVER HER NOSE TO HELP CUT DOWN IRRITATION ON THE TOP OF HER NARE. PATIENT DID RECEIVE SOME ATIVAN TO HELP WITH ANXIETY AND BE ABLE TO WEAR/TOLERATE THE BIPAP MORE EASILY. PATIENT DENIES ANY OTHER NEEDS AT THIS TIME. WILL REPORT OFF TO DAY SHIFT UPON THEIR ARRIVAL
--- NOTE | 2019-12-10 05:33 | NUR ---
PATIENT IS TAKEN OFF OF BIPAP
[2019-12-10 06:04] LABS: BASO % 0.5 % (0.0-2.0); EOS # 0.1 (0.0-0.7); EOS % 1.2 % (0-4.0); GRAN # 3.4 (1.4-6.5); GRAN % 59.4 % (42.2-75.2); HEMATOCRIT 30.7 % (37.0-47.0); HEMOGLOBIN 9.8 g/dl (12.5-16.0); LYMPH # 1.6 (1.2-3.4); LYMPH % 27.9 % (20.0-51.0); MEAN CELL VOLUME 90 fl (80.0-100.0); MEAN CORPUSCULAR HEMOGLOBIN 29 pg (27.0-31.0); MEAN CORPUSCULAR HGB CONC 32 g/dl (33.0-37.0); MEAN PLATELET VOLUME 10.4 fl (7.4-10.4); MONO # 0.6 (0.1-0.6); MONO % 10.7 % (1.7-9.3); PLATELET COUNT 185 K/mm3 (130-400); RED BLOOD COUNT 3.41 M/mm3 (4.10-5.30); REDCELL DISTRIBUTION WIDTH-CV 13.7 % (11.5-14.5)
[2019-12-10 06:10] LABS: INR 1.2 (0.8-3.0); PROTHROMBIN TIME 13.6 SECONDS (9.7-12.8)
[2019-12-10 06:12] LABS: PARTIAL THROMBOPLASTIN TIME 23.7 SECONDS (26.0-37.0)
[2019-12-10 06:20] LABS: ALBUMIN 3.3 gm/dL (3.5-5.0); BILIRUBIN,TOTAL 0.5 mg/dL (0.0-1.0); CALCIUM 8.6 mg/dL (8.4-10.2); CREATININE, serum 1.38 (0.52-1.25); POTASSIUM 3.4 mmol/L (3.4-5.0)
--- NOTE | 2019-12-10 08:34 | NUR ---
Pt sleeping upon entry, easily awakened, no C/O pain at this time, medications given with sip of water, shift assessment complete, left Pt call light in reach, bed in lowest position.
--- NOTE | 2019-12-10 10:34 | NUR ---
SEE MERGE FOR MEDICATION ADMINISTRATION TIMES AND INTRA AND POST SEDATION ASSESSMENTS.
[2019-12-10 11:36] LABS: ARTERIAL BLD GAS O2 SATURATION 97.3 % (92-100); ARTERIAL BLOOD GAS BASE EXCESS 2.9 (-2-2); ARTERIAL BLOOD GAS HCO3 27.7 meq/L (22-26); ARTERIAL BLOOD GAS PCO2 43.3 mmHg (35-45); ARTERIAL BLOOD GAS PO2 98.1 mmHg (80-100); ARTERIAL BLOOD GAS pH 7.42 (7.35-7.45)
--- NOTE | 2019-12-10 17:53 | NUR ---
Patient is alert and oriented. heart cath was performed today through right radial. scanty bleeding at insertion site. patient tolerate diet post procedure. vitals within limit.
--- NOTE | 2019-12-10 19:21 | NUR ---
PT REPORTS MILD PAIN TO RADIAL SITE. AIR PRESSURE IN CLOSURE DEVICE REDUCED
--- NOTE | 2019-12-10 20:00 | NUR ---
Patient assessed at this time. Alert and oriented x 4, and able to make need known. Reported aching pain all over. Given PRN Acetaminophen as requested. Peripheral IV to left AC. Denies SOB and dyspnea. On oxygen at 1 L/min via NC. Respirations even and unlabored. LS CTA upper lobes, diminished lower lobes. HRR. Telemetry in place. Capillary refill less than 3 seconds. Non-tenting skin turgor. Right radial band removed from heart cath site. No bleeding. Bandaid applied. Arm board in place. Right femoral site with small amount of light red drainage at the top. No increase in amount when checked at shift change. BSAx4. Abdomen soft and non-tender. 1+ edema BLE. Voices no questions, needs, or concerns at this time. Resting in bed with call light within reach.
[2019-12-11 03:36] VITALS: BP 125/50; PULSE 74; TEMP 97.6
--- NOTE | 2019-12-11 05:31 | NUR ---
Patient wore BIPAP until around 0415, then went back on oxygen at 2 L/min via NC. Dressing to right radial and right femoral sites are CDI. Voices no questions, needs, or concerns at this time. Denies having any pain or discomfort since given medication at beginning of shift. Resting in bed with call light within reach.
[2019-12-11 07:50] LABS: BASO % 0.5 % (0.0-2.0); EOS # 0.1 (0.0-0.7); EOS % 1.1 % (0-4.0); GRAN # 3.7 (1.4-6.5); GRAN % 64.7 % (42.2-75.2); HEMOGLOBIN 10.5 g/dl (12.5-16.0); LYMPH # 1.4 (1.2-3.4); LYMPH % 23.9 % (20.0-51.0); MEAN CELL VOLUME 90 fl (80.0-100.0); MEAN CORPUSCULAR HEMOGLOBIN 29 pg (27.0-31.0); MEAN CORPUSCULAR HGB CONC 33 g/dl (33.0-37.0); MEAN PLATELET VOLUME 10.5 fl (7.4-10.4); MONO # 0.6 (0.1-0.6); MONO % 9.6 % (1.7-9.3); PLATELET COUNT 160 K/mm3 (130-400); RED BLOOD COUNT 3.61 M/mm3 (4.10-5.30); REDCELL DISTRIBUTION WIDTH-CV 13.6 % (11.5-14.5)
[2019-12-11 07:51] LABS: HEMATOCRIT 32.3 % (37.0-47.0)
[2019-12-11 07:53] LABS: ALBUMIN 3.3 gm/dL (3.5-5.0); BILIRUBIN,TOTAL 0.6 mg/dL (0.0-1.0); CALCIUM 8.8 mg/dL (8.4-10.2); CREATININE, serum 1.21 (0.52-1.25); POTASSIUM 3.7 mmol/L (3.4-5.0)
[2019-12-11 08:07] VITALS: BP 121/53; PULSE 75; TEMP 97.8
--- NOTE | 2019-12-11 09:11 | NUR ---
Pt sleeping upon entry, easily awakened no C/O pain at this time, radial site CDI, femoral site has a small area of drainage at top of gauze, no change from yesterday afternoon. Shift assessments complete, left Pt bed in lowest position, call light in reach.
[2019-12-11 12:27] VITALS: BP 114/56; PULSE 72; TEMP 97.6
[2019-12-11 16:32] VITALS: BP 116/41; PULSE 76; TEMP 98.1
--- NOTE | 2019-12-11 18:18 | NUR ---
Pt resting in the room today, slept on and off all day, Pt had no other complaints, VS have remained stable.
--- NOTE | 2019-12-11 18:40 | NUR ---
Pt report received from Mathew RAMEY at bedside. Pt is A&Ox4, is able to make her wants/needs known, and has call light within reach. Pt denies pain and reports that she is uncertain how long she will use her BiPap tonight but is willing to try for as long as she can tolerate it. Education on how a Bi-Pap can assist Pt in obtaining and maintaining proper O2 and CO2 gases in her lungs by assisting her to breath in and breath out. Pt states understanding and asks this keno writer "do you use one?" This keno writer states he uses a CPAP but may one day have to be advanced to a BiPap as well. Pt remains in stable condition with no s/s of distress noted. Will continue to monitor.
[2019-12-11 19:05] VITALS: BP 112/46; PULSE 71; TEMP 98
--- NOTE | 2019-12-11 23:29 | NUR ---
Pt has been resting in bed peacefully. After med pass Pt used call light to report that she was having some pain in her right arm (chronic pain) and requested her PRN APAP. Pt remains A&Ox4 with no s/s of distress noted. Pt stated that she was ready for her BiPap to be put in place as this program writer was completing her HS med pass. RT notified of request. Call light remains near Pt. Will continue to monitor.
[2019-12-11 23:36] VITALS: BP 131/52; PULSE 70; TEMP 98.3
--- NOTE | 2019-12-12 01:47 | NUR ---
Pt notified this credit underwriter that she needed to be disconnected from BiPap to use restroom. This credit underwriter assisted Pt with needs and when pt returned to bed BiPap was placed back onto Pt. Call light within reach. Will continue to monitor. Call light within reach.
[2019-12-12 03:22] VITALS: BP 106/49; PULSE 83; TEMP 98.5
--- NOTE | 2019-12-12 03:45 | NUR ---
Pt uses call light to notify this group underwriter that she needed to use restroom and that she was requesting PRN APAP. Educaton provided that the PRN APAP is too early to be given but this group underwriter will be making rounds when APAP is available and this group underwriter will bring her a PRN dose at that time. Pt states understanding and replies that she can wait until then to take medication.
--- NOTE | 2019-12-12 04:53 | NUR ---
Pt has been in a pleasant mood during the shift and has remnained in stable condition with her only complaint being persisten and recurring pain to her RUE that is a chronic condition and that she has been requesting PRN APAP to deal with. PRN APAP appears to be effective at this time as evidenced by Pt's post pain assessments. Pt has just recently removed her BiPap after having slept with it on for about half the night. Call light within reach. Will continue to monitor.
--- NOTE | 2019-12-12 06:48 | NUR ---
Pt report given to ULYSSES RAMEY at bedside
[2019-12-12 07:58] VITALS: BP 110/44; PULSE 68; TEMP 97.5
[2019-12-12 09:34] LABS: CREATININE, serum 1.41 (0.52-1.25); POTASSIUM 3.7 mmol/L (3.4-5.0)
--- NOTE | 2019-12-12 09:40 | NUR ---
Pt sleeping upon entry easily awakened, no C/O pain at this time, shift assessments complete, left Pt call light in reach, bed in lowest position.
[2019-12-12 12:21] VITALS: BP 112/55; PULSE 69; TEMP 98.2
[2019-12-12 15:58] VITALS: BP 121/66; PULSE 77; TEMP 97.5
--- NOTE | 2019-12-12 16:20 | NUR ---
Pt has C/O mild pain in her right arm, medications given for relief.
--- NOTE | 2019-12-12 18:30 | NUR ---
Pt resting in the room today, had some C/O pain in her right arm this afternoon medications given with good results, no other issues noted. VS have remained stable.
--- NOTE | 2019-12-12 19:10 | NUR ---
Received report from Mathew. Patient currently in the bathroom during shift change and rounds.
[2019-12-12 19:32] VITALS: BP 120/56; PULSE 74; TEMP 97.8
--- NOTE | 2019-12-12 21:00 | NUR ---
Patient asked what time will be her next Tylenol. Informed her that it was last given at 1617H and I can give the next dose at 2200H. She agreed. This nurse asked where the pain was and she said it's on her right arm. Pain score of 2-3/10 but states that it bothers her.
[2019-12-13 00:04] VITALS: BP 123/61; PULSE 71; TEMP 97.8
--- NOTE | 2019-12-13 03:14 | NUR ---
Went in to check on pt. Pt is currently sleeping with the BiPap at this time. Pt has her call lgith within reach and her bed is in lowest position.
[2019-12-13 04:49] VITALS: BP 121/70; PULSE 81; TEMP 97.6
--- NOTE | 2019-12-13 04:57 | NUR ---
Pt had concerns about not being able to sleep. Stated that she has been really cold and once she warms up she begains to get warm. Pt is currently resting in bed with her eyes closed. Pt heart sounds were normal S1 and S2 sounds, lungs sounds were clear, bowel sounds were audible in all quads. Pt was ambulating to her but when i entered the room. Pt was given a warm blanket at this time and she was given a fresh cup of ice water. Pt has her call light within reach and her bed is in lowest position.
[2019-12-13 06:07] LABS: BASO % 0.5 % (0.0-2.0); EOS # 0.1 (0.0-0.7); GRAN # 3.8 (1.4-6.5); GRAN % 62.7 % (42.2-75.2); HEMOGLOBIN 10.3 g/dl (12.5-16.0); LYMPH # 1.5 (1.2-3.4); LYMPH % 25.3 % (20.0-51.0); MEAN CELL VOLUME 90 fl (80.0-100.0); MEAN CORPUSCULAR HEMOGLOBIN 28 pg (27.0-31.0); MEAN CORPUSCULAR HGB CONC 32 g/dl (33.0-37.0); MEAN PLATELET VOLUME 10.4 fl (7.4-10.4); MONO # 0.6 (0.1-0.6); PLATELET COUNT 233 K/mm3 (130-400); RED BLOOD COUNT 3.64 M/mm3 (4.10-5.30); REDCELL DISTRIBUTION WIDTH-CV 13.8 % (11.5-14.5)
[2019-12-13 06:14] LABS: HEMATOCRIT 32.6 % (37.0-47.0)
[2019-12-13 06:18] LABS: ALBUMIN 3.6 gm/dL (3.5-5.0); BILIRUBIN,TOTAL 0.3 mg/dL (0.0-1.0); CREATININE, serum 1.61 (0.52-1.25); POTASSIUM 4.4 mmol/L (3.4-5.0); TOTAL PROTEIN 6.3 gm/dL (6.4-8.2)
--- NOTE | 2019-12-13 07:26 | NUR ---
Reported off to TANVIR Tarango. Pt is currently lying in bed sleeping at this time. Pt currently has on her Bipap. Pt did inform me that she was very tired and felt like she hadn't had much sleep. Pt has her call light within reach and her bed is in lowest position.
--- NOTE | 2019-12-13 07:30 | NUR ---
Assessment complete. Pt sitting up in bed, A&O x 3. Breath sounds clear, labored. Pt denies pain at this time. Saline lock IV to left AC without s/s of complications. 2+ edema to BLE. O2 at 1 L/min via NC. No further needs reported. Call light in reach.
[2019-12-13 07:36] VITALS: BP 133/70; PULSE 80; TEMP 97.5
[2019-12-13] MEDS ORDERED: LOPRESSOR100 MG PO (07:53)
[2019-12-13] MEDS ORDERED: CORDARONE200 MG/TAB PO (07:53)
[2019-12-13] MEDS ORDERED: ALDACTONE 25MG25 M1 PO (07:54)
[2019-12-13] MEDS ORDERED: ZESTRIL40 MG PO (10:25)
[2019-12-13] MEDS ORDERED: LASIX 40MG TABL40 MG PO (10:26)
--- NOTE | 2019-12-13 10:40 | NUR ---
Laborer [place] attended clinical rounds with the team and patient to discharge home today. SW met with patient following rounds and patient declined Home Health Services. Patient states she has a that can assist her as needed. SW read IM form aloud to patient who verbalized understanding and provided consent for SW to sign on her behalf. Patient declined copy. SW placed original in chart. No additional needs at this time.
[2019-12-13 12:21] VITALS: BP 126/64; PULSE 72; TEMP 97.4
--- NOTE | 2019-12-13 13:30 | NUR ---
IV discontinued from left AC with tip intact. Discharge instructions reviewed with pt regarding new/changes to medications. Pt verbalizes understanding, discharged home, escorted out of facilitiy via WC accompanied by this nurse, spouse providing ride home.
== END 2019-12-13 13:30 | DRG 286 ==
LOC: COL.ER 15:54 → EU 17:47 → MEDICAL 12-08 10:53
PROVIDERS: Emergency Medicine; Internal Medicine; Internal Medicine Cardiovascular Disease; Internal Medicine Pulmonary Disease; Nurse Practitioner; Physician Assistant; Student in an Organized Health Care Education/Training Program; ADMIT Family Medicine
PROC: 4A023N8 Measurement of Cardiac Sampling and Pressure, Bilateral, Percutaneous Approach (ICD-10-PCS; principal; 2019-12-04)
PROC: B2111ZZ Fluoroscopy of Multiple Coronary Arteries using Low Osmolar Contrast (ICD-10-PCS; 2019-12-04)
DX: I13.0 Hypertensive heart and chronic kidney disease with heart failure and stage 1 through stage 4 chronic kidney disease, or unspecified chronic kidney disease (principal); I50.21 Acute systolic (congestive) heart failure; I48.92 Unspecified atrial flutter; I48.91 Unspecified atrial fibrillation; R19.7 Diarrhea, unspecified; N18.3 Chronic kidney disease, stage 3 (moderate); E87.6 Hypokalemia; R94.31 Abnormal electrocardiogram [ECG] [EKG]; K76.1 Chronic passive congestion of liver; E03.9 Hypothyroidism, unspecified; E78.5 Hyperlipidemia, unspecified; D63.1 Anemia in chronic kidney disease; I49.5 Sick sinus syndrome; R06.09 Other forms of dyspnea; I27.20 Pulmonary hypertension, unspecified; R53.81 Other malaise; Z88.8 Allergy status to other drugs, medicaments and biological substances; I42.9 Cardiomyopathy, unspecified
CPT/HCPCS: 99222-AI; 99232-AI; 99233-AI; 99239; A9500; C1769; C1887; C1894; J1644; J1940; J2060; J2543; J2704; J2785; J3010; J3480; Q9967

== ENCOUNTER 2019-12-14 04:28 | Emergency (ER) | payer MEDICARE, BC, OTHER ==
[~2019-12-14 04:28] MED LIST changes: +ALDACTONE 25MG25 M1 PO; +LASIX 40MG TABL40 MG PO; +LOPRESSOR100 MG PO; +MULTIPLE VITAMI1 CAP PO; +NATURE'S BLE1000 MCG; +SYNTHROID 0.0.025 MG PO; +ZESTRIL40 MG PO
[2019-12-14 05:31] LABS: BASO % 0.3 % (0.0-2.0); EOS % 0.3 % (0-4.0); GRAN # 4.5 (1.4-6.5); GRAN % 70.5 % (42.2-75.2); HEMOGLOBIN 10.5 g/dl (12.5-16.0); LYMPH # 1.1 (1.2-3.4); LYMPH % 17.5 % (20.0-51.0); MEAN CELL VOLUME 89 fl (80.0-100.0); MEAN CORPUSCULAR HEMOGLOBIN 28 pg (27.0-31.0); MEAN CORPUSCULAR HGB CONC 32 g/dl (33.0-37.0); MEAN PLATELET VOLUME 10.4 fl (7.4-10.4); MONO # 0.7 (0.1-0.6); MONO % 10.9 % (1.7-9.3); PLATELET COUNT 250 K/mm3 (130-400); REDCELL DISTRIBUTION WIDTH-CV 13.9 % (11.5-14.5)
[2019-12-14 05:34] LABS: HEMATOCRIT 32.9 % (37.0-47.0)
[2019-12-14 05:39] LABS: ALANINE AMINOTRANSFERASE 81 U/L (4-34); ALBUMIN 4.1 gm/dL (3.5-5.0); ALKALINE PHOSPHATASE 151 U/L (50-136); ANION GAP 8 mmol/L (7-16); AST,SGOT 66 U/L (15-37); BILIRUBIN,TOTAL 0.6 mg/dL (0.0-1.0); BLOOD UREA NITROGEN 36 mg/dL (7-17); CALCIUM 9.3 mg/dL (8.4-10.2); CARBON DIOXIDE 25 mmol/L (22-30); CHLORIDE 100 mmol/L (98-107); CREATININE, serum 1.57 (0.52-1.25); GLUCOSE 143 mg/dL (74-106); INR 1.9 (0.8-3.0); LIPASE 62 U/L (23-300); POTASSIUM 4.2 mmol/L (3.4-5.0); PROTHROMBIN TIME 23.2 SECONDS (9.7-12.8); SODIUM 134 mmol/L (137-145); TOTAL PROTEIN 6.7 gm/dL (6.4-8.2)
[2019-12-14 05:50] LABS: TROPONIN-I < 0.012 ng/mL (0.000-0.035)
--- NOTE | 2019-12-14 09:54 | NUR ---
viscose cellar worker met with physician and then with patient to discuss discharge planning. Patient was discharged to home on 12/13/2019 where she resides with her spouse. Patient and spouse were not able to manage her care at home and is agreeable to placement. Patient states she does not desire [facility]. Providing quality scores and options are waived at this time. Worker communicated to patient and spouse that referrals were given to [facility], [facility] and [facility] and they are agreeable. Spouse states he can transport patient to [facility], today, if that is accepting and desired facility. Worker collaborated with nurse and physician regarding the above information.
--- NOTE | 2019-12-14 13:19 | NUR ---
[facility], [facility] all accept patient to skilled care. Patient and spouse chose [facility] as spouse had been there previously. [facility] will transport today at 2:15 today. Worker contacted spouse and advised of transfer today. Worker notified [facility] of patient's choice in placement.
[2019-12-14 13:46] VITALS: BP 120/82; PULSE 86; TEMP 97.5
== END 2019-12-14 14:52 ==
LOC: COL.ER 04:28
PROVIDERS: Emergency Medicine
DX: R06.02 Shortness of breath (principal); I25.10 Atherosclerotic heart disease of native coronary artery without angina pectoris; Z95.9 Presence of cardiac and vascular implant and graft, unspecified; Z79.01 Long term (current) use of anticoagulants; Z95.0 Presence of cardiac pacemaker
CPT/HCPCS: J2060

== ENCOUNTER 2020-02-05 18:08 | Inpatient (IN) | payer MEDICARE, BC ==
[~2020-02-05] VITALS: Ht 172.7 cm; Wt 101.0 kg
[~2020-02-05 18:08] MED LIST changes: +LUNESTA2 MG PO; +PACERONE400 MG PO; +PRIL40 PO
[2020-02-05 18:50] LABS: BASO % 0.6 % (0.0-2.0); EOS % 0.2 % (0-4.0); GRAN # 2.6 (1.4-6.5); GRAN % 53.5 % (42.2-75.2); HEMOGLOBIN 10.7 g/dl (12.5-16.0); LYMPH # 1.7 (1.2-3.4); LYMPH % 35.4 % (20.0-51.0); MEAN CELL VOLUME 80 fl (80.0-100.0); MEAN CORPUSCULAR HEMOGLOBIN 24 pg (27.0-31.0); MEAN CORPUSCULAR HGB CONC 31 g/dl (33.0-37.0); MEAN PLATELET VOLUME 9.5 fl (7.4-10.4); MONO # 0.5 (0.1-0.6); MONO % 10.1 % (1.7-9.3); PLATELET COUNT 259 K/mm3 (130-400)
[2020-02-05 18:55] LABS: HEMATOCRIT 35.1 % (37.0-47.0); INR 2.5 (0.8-3.0); PROTHROMBIN TIME 28.2 SECONDS (9.7-12.8)
[2020-02-05 19:32] LABS: ALANINE AMINOTRANSFERASE 63 U/L (4-34); ALBUMIN 3.9 gm/dL (3.5-5.0); ALKALINE PHOSPHATASE 155 U/L (50-136); ANION GAP 12 mmol/L (7-16); AST,SGOT 83 U/L (15-37); BILIRUBIN,TOTAL 0.9 mg/dL (0.0-1.0); BLOOD UREA NITROGEN 51 mg/dL (7-17); C-REACTIVE PROTEIN 1.7 mg/dL (0.0-0.9); CALCIUM 8.9 mg/dL (8.4-10.2); CARBON DIOXIDE 17 mmol/L (22-30); CHLORIDE 98 mmol/L (98-107); CREATININE, serum 2.79 (0.52-1.25); GLUCOSE 100 mg/dL (74-106); LIPASE 298 U/L (23-300); POTASSIUM 4.6 mmol/L (3.4-5.0); SODIUM 127 mmol/L (137-145); TOTAL PROTEIN 6.7 gm/dL (6.4-8.2)
[2020-02-05 19:51] LABS: TROPONIN-I < 0.012 ng/mL (0.000-0.035)
--- NOTE | 2020-02-05 21:10 | NUR ---
Pt ADMITTED TO THE MEDICAL UNIT FOR HYPOTENSION AND WEAKNESS. Pt IS RESTING IN BED AT THIS TIME WITH MAGNESIUM INFUSING PER IV WITH NO COMPLICATIONS OR ADVERSE REACTIONS NOTED. CALL LIGHT IS AT Pt SIDE. WILL CONTINUE TO MONITOR.
--- NOTE | 2020-02-05 22:45 | NUR ---
Pt REPORTS THAT SHE HAS A HEADACHE AND AFTER BEGINNING TO EAT SOME FOOD BEGAN TO VOMIT THE FOOD AND WATER BACK UP AND STATES SHE HAS HAD TROUBLE SWALLOWING FOR AWHILE AND HAS HAD EMESIS DURING EATING FOOD FOR ABOUT 3 WEEKS DUE TO FEELING LIKE THE FOOD "GETS STUCK" IN Pt'S THROAT. Pt ORIENTED TO ROOM AN CALL LIGHT SYSTEM. Pt IS A&O X4 AND IS EASILY ABLE TO MAKE WANTS/NEEDS KNOWN. Pt AMBUALTES WITH A SLOW PURPOSEFUL UNEVEN GAIT AND REQUIRES STAND BY ASSIST TO ENSURE SAFETY DUE TO WEAKNESS, ALTERED GAIT, IV TUBING, AND SCDs. Pt EDUCATED ON FALL RISK AND THAT SHE NEEDS TO USE CALL LIGHT TO ASK FOR HELP WITH TRANSFERS TO REDUCE THE RISK OF FALLING AND OR INJURY. Pt STATES UNDERSTANDING. Pt RESTING IN BED AT THIS TIME WITH CALL LIGHT WITHIN REACH. WILL CONTINUE TO MONITOR.
[2020-02-06] VITALS (7 sets, daily range): BP systolic 104–116; BP diastolic 42–88; PULSE 75–99; TEMP 97.3–98.8
--- NOTE | 2020-02-06 00:31 | NUR ---
Pt RESTING IN BED WITH EYES CLOSED AND DID NOT RESPOND TO THIS ACTIVITY AIDE UNTIL THE 3RD ATTEMPT. PT STATES SHE WAS "SLEEPING WELL". EDUCATION ON ORDER FOR SCDs WITH Pt REPLYING THAT SHE WISHES NOT TO WEAR THEM TONIGHT BECAUSE SHE IS "SO TIRED". THIS ACTIVITY AIDE WILL ATTEMPT TO PLACE SCDs ON Pt IS SHE GETS UP FOR TOILETING OR WAKES UP DURING THE NOC.
--- NOTE | 2020-02-06 00:54 | NUR ---
DARLING JUST ENTERTED ROOM TO OBTAIN VS AND THIS WIRE STRAIGHTENER ASKED Pt IS SHE WAS READY FOR SCDs TO WHICH SHE REPLIED "YES". SCDs PLACED ON BILAT LEGS. CALL LIGHT WITHIN REACH. WILL CONTINUE TO MONITOR. Pt DENIES ANY WANTS/ NEEDS AT THIS TIME AND PRESENTS WITH NO S/S OF DISTRESS NOTED.
--- NOTE | 2020-02-06 01:15 | NUR ---
Pt USED CALL LIGHT TO REQUEST ASSISTANCE TO USE RESTROOM. Pt ASSISTED TO RESTROOM WHERE IT WAS NOTED THAT SHE VOIDED AND HAD A MEDIUM FORMED BROWN BM. Pt ASSISTED BACK TO BED WHERE SHE IMMEDIATELY CLOSED HER EYES AND APPEARED TO BE FALLING ASLEEP. CALL LIGHT AT Pt SIDE. WILL CONTINUE TO MONITOR.
--- NOTE | 2020-02-06 04:11 | NUR ---
Pt has remained in bed resting peacefully with eyes closed and no s/s of distress noted. Pt has been compliant with medication regimen and cooperative with care this shift with no further complaints of headache or discomfort since her APAP suppository was given. Pt has call light at her side and remains NPO due to dysphagia with emesis. No s/s of distress noted. Will continue to monitor.
--- NOTE | 2020-02-06 07:07 | NUR ---
Pt report given to dayshift RN at bedside. Pt is resting peacefully in bed with eyes closed and no s/s of distress noted. Call light within reach.
[2020-02-06 07:48] LABS: BASO % 0.8 % (0.0-2.0); EOS % 0.3 % (0-4.0); GRAN % 56.3 % (42.2-75.2); LYMPH # 1.1 (1.2-3.4); LYMPH % 30.8 % (20.0-51.0); MEAN CELL VOLUME 81 fl (80.0-100.0); MEAN CORPUSCULAR HGB CONC 31 g/dl (33.0-37.0); MEAN PLATELET VOLUME 9.5 fl (7.4-10.4); MONO # 0.4 (0.1-0.6); MONO % 11.5 % (1.7-9.3); PLATELET COUNT 182 K/mm3 (130-400); RED BLOOD COUNT 3.92 M/mm3 (4.10-5.30); REDCELL DISTRIBUTION WIDTH-CV 17.2 % (11.5-14.5)
[2020-02-06 07:59] LABS: ALBUMIN 3.3 gm/dL (3.5-5.0); BILIRUBIN,TOTAL 0.8 mg/dL (0.0-1.0); CALCIUM 8.5 mg/dL (8.4-10.2); CREATININE, serum 2.55 (0.52-1.25); MAGNESIUM 2.7 mg/dL (1.6-2.3); POTASSIUM 4.2 mmol/L (3.4-5.0)
[2020-02-06 08:05] LABS: HEMATOCRIT 31.7 % (37.0-47.0); HEMOGLOBIN 9.8 g/dl (12.5-16.0); MEAN CORPUSCULAR HEMOGLOBIN 25 pg (27.0-31.0)
[2020-02-06 08:40] LABS: INR 2.6 (0.8-3.0); PROTHROMBIN TIME 29.2 SECONDS (9.7-12.8)
--- NOTE | 2020-02-06 09:21 | NUR ---
PATIENT ASSESSMENT COMPLETED. SHE COMPLAINS OF BACK PAIN AND WILL FIND A RECLINER TO GET HER TO SIT IN, BED IS UNCOMFORTABLE. UNABLE TO TAKE ORAL MEDICATIONS UNTIL SEEN BY GI DOCTOR
--- NOTE | 2020-02-06 11:18 | NUR ---
Patient sleeping in chair. No signs of distress
[2020-02-06 12:26] LABS: COLLECTION METHOD CLEAN CATCH
[2020-02-06 12:42] LABS: MUCOUS Present /lpf; PH 5 (5-8); SQUAMOUS EPITHELIAL 0-2 /hpf; URINE APPEARANCE Hazy; URINE BACTERIA Occasional /hpf; URINE BILIRUBIN Negative (NEGATIVE); URINE BLOOD Negative (NEGATIVE); URINE COLOR Yellow; URINE GLUCOSE Negative (NEGATIVE); URINE KETONE Negative (NEGATIVE); URINE LEUKOCYTE ESTERASE 1+ (NEGATIVE); URINE NITRATE Negative (NEGATIVE); URINE PROTEIN(semi-quant) Negative (NEGATIVE); URINE RBC None Seen /hpf; URINE UROBILINOGEN Negative (NEGATIVE)
--- NOTE | 2020-02-06 15:31 | NUR ---
Plan: To return home in [facility] operator care. Assessment: SW met with patient about DC. Patient reports that she resides in [place]. Patient reports that use of a walker as needed. Patient is interested in home health care. Patient reports that her DPOA is her spouse. Patient reports that she has a pacemaker. PCP is Dr. Lawson. Patient reports that her medications come from [facility]. Action: Sw will need to follow up. Educated patient on services.
--- NOTE | 2020-02-06 17:45 | NUR ---
PATIENT AMBULATES IN THE HALLWAY WITH SHORTNESS OF BREATH. TOLERATES WELL
--- NOTE | 2020-02-06 20:12 | NUR ---
Initial shift assessment done- states back pain 12/02--just very uncomfortable,, would like some type of pain med- unable to take p.o,,NPO for EGD in the AM, has some lower ext edema, Tele on, IV fluids of NS at 75cc/hr
--- NOTE | 2020-02-06 21:30 | NUR ---
Did call Piper CARRERA about pain meds for back pain- ordered Tylenol supp and Morphine IV,,, I did give the Morphine IV about 20 minutes ago and pt is sleeping at this time
[2020-02-07] VITALS (12 sets, daily range): BP systolic 108–137; BP diastolic 57–74; PULSE 74–92; TEMP 97–98
--- NOTE | 2020-02-07 05:38 | NUR ---
Did sleep well after earlier Morphine IV given for back pain, -- VSS,, has been NPO - Tele,
[2020-02-07 06:51] LABS: BASO % 0.4 % (0.0-2.0); GRAN # 2.6 (1.4-6.5); GRAN % 54.4 % (42.2-75.2); HEMOGLOBIN 10.6 g/dl (12.5-16.0); LYMPH # 1.6 (1.2-3.4); LYMPH % 33.5 % (20.0-51.0); MEAN CELL VOLUME 80 fl (80.0-100.0); MEAN CORPUSCULAR HEMOGLOBIN 25 pg (27.0-31.0); MEAN CORPUSCULAR HGB CONC 31 g/dl (33.0-37.0); MEAN PLATELET VOLUME 9.6 fl (7.4-10.4); MONO # 0.5 (0.1-0.6); MONO % 11.5 % (1.7-9.3); PLATELET COUNT 209 K/mm3 (130-400); RED BLOOD COUNT 4.28 M/mm3 (4.10-5.30); REDCELL DISTRIBUTION WIDTH-CV 17.5 % (11.5-14.5)
[2020-02-07 06:59] LABS: INR 1.9 (0.8-3.0); PROTHROMBIN TIME 21.8 SECONDS (9.7-12.8)
[2020-02-07 07:03] LABS: HEMATOCRIT 34.4 % (37.0-47.0)
[2020-02-07 07:05] LABS: CALCIUM 8.8 mg/dL (8.4-10.2); CREATININE, serum 2.07 (0.52-1.25); POTASSIUM 4.5 mmol/L (3.4-5.0)
--- NOTE | 2020-02-07 11:31 | NUR ---
JIGNESH met with the patient and her , Nilesh to complete initial intake. The patient lives in [place] with her . The patient has a cane and walker. She uses the walker more often than the cane. The patient receives assistance with showers from [employer]. The patient states she can dress herself but she is slow. JIGNESH and the patient discussed HHS. JIGNESH provided Medicare.gov's list of tobacco cutter in [place]. The patient has advanced directives in the EMR and designate Nilesh. The patient plans to return home at discharge. The patient will review the HHS list then inform JIGNESH of her decision. Will continue to monitor.
--- NOTE | 2020-02-07 12:09 | NUR ---
First visit from the banbury mill operator. prayed with patient. No other needs right now.
--- NOTE | 2020-02-07 19:11 | NUR ---
Pt assessment completed and charted, alert and oriented, roomair. I/V line flushed w/ complications. No N/V/D, pain, numbness, tingling, SOB as per pt at this time. No further needs at this time.
--- NOTE | 2020-02-07 19:31 | NUR ---
EDG and MRI done. Pt requested for pain pills for her back pain and given 2 tabs acetamenophen. No further needs at this time.
--- NOTE | 2020-02-07 20:39 | NUR ---
PATIENT ASSESSMENT COMPLETED. PATIENT IS ALERT AND ORIENTATED X4. PATIENT IS COMPLAINING OF SOME BACK PAIN THAT PRN TYLENOL WAS GIVEN. PATIENT TAKES HERSELF TO THE BATHROOM BUT A NEW BREIF WAS GIVEN TO HER. PATIENT IV IS INT TO THE L.A.C. PATIENT WAS HELPED BACK TO BED AT THIS TIME AND COVERED UP. CALL LIGHT WITHIN REACH.
[2020-02-08 03:43] VITALS: BP 118/67; PULSE 91; TEMP 98.3
--- NOTE | 2020-02-08 05:53 | NUR ---
PATIENT GOT A DOSE OF TYLENOL AT HS AND THEN REQUESTED MORE PAIN MEDICATION SO A DOSE OF MORPHINE WAS GIVEN FOR HER PAIN. PATIENT REQUESTED SOME TYLENOL EARLY IN THE MORNING FOR SOME BACK PAIN. PATIENT IS STEADY ON HER FEET AND TAKES HERSELF TO THE BATHROOM. PATIENT HAS BEEN ALERT AND ORIENTATED. DENIES ANY OTHER NEEDS. WILL REPORT OFF TO DAY SHIFT.
[2020-02-08 07:19] LABS: BASO % 0.2 % (0.0-2.0); GRAN # 2.7 (1.4-6.5); GRAN % 64.3 % (42.2-75.2); HEMOGLOBIN 10.2 g/dl (12.5-16.0); LYMPH # 0.9 (1.2-3.4); LYMPH % 21.9 % (20.0-51.0); MEAN CELL VOLUME 80 fl (80.0-100.0); MEAN CORPUSCULAR HEMOGLOBIN 24 pg (27.0-31.0); MEAN CORPUSCULAR HGB CONC 30 g/dl (33.0-37.0); MEAN PLATELET VOLUME 9.2 fl (7.4-10.4); MONO # 0.6 (0.1-0.6); MONO % 13.1 % (1.7-9.3); PLATELET COUNT 221 K/mm3 (130-400); RED BLOOD COUNT 4.22 M/mm3 (4.10-5.30); REDCELL DISTRIBUTION WIDTH-CV 17.3 % (11.5-14.5)
[2020-02-08 07:20] VITALS: BP 100/78; PULSE 79; TEMP 97.5
[2020-02-08 07:29] LABS: HEMATOCRIT 33.8 % (37.0-47.0)
[2020-02-08 07:41] LABS: CALCIUM 8.8 mg/dL (8.4-10.2); CREATININE, serum 1.95 (0.52-1.25); POTASSIUM 4.1 mmol/L (3.4-5.0)
--- NOTE | 2020-02-08 09:17 | NUR ---
SW discussed post acute rehab for the patient with the team. They agreed the patient would benefit from rehab. JIGNESH met with the patient to discuss post acute rehab options. During the converstation the patient was hesistant because she wants to go home but states she knows she needs to build strength. The patient was open to talking with [facility] Osorio Director, then she will make a decision. The patient states she will be choosing a [facility] agency as well. JIGNESH contacted OCTAVIO Osorio Director and she will meet with the patient. Will continue to follow.
--- NOTE | 2020-02-08 09:59 | NUR ---
Pt assessment completed and charted, alert and oriented, roomair. Bilateral legs has swelling +3, provided pillows to elevate her legs. Meds provided as per OCT, metoprolol is on hold. I/V flushed with no complications. Pt complained of Nausea this morning, called the physician, not able to provide anti-emetic due to her chronic QT problem. Tried cracker and some warm water and she got better. No further needs at this time.
--- NOTE | 2020-02-08 10:12 | NUR ---
MET WITH PT AND PROVIDED HEART FAILURE NOTEBOOK. PROVIDED ONE ON ONE TEACHING WITH PT. PT STATED SHE MAY HAVE ONE AT HOME BUT WAS UNSURE, THEREFORE PROVIDED AN ADDITIONAL BOOK. PT HAS HAD MULTIPLE READMISSIONS, DISCUSSED THIS AND HOW TO DECREASE READMISSIONS. EDUCATED PT REGARDING, LOW NA DIET, DAILY WEIGHTS, ALERTING PHYSICIAN WHEN CHANGES IN CONDITION OCCUR, HOME HEALTH OPTIONS, AND EXERCISE. PT VERBALIZED UNDERSTANDING. PT DEMONSTRATED FLAT AFFECT AND NOT OPEN TO EXTENDED TEACHING SESSION TODAY. ENCOURAGED PT TO READ THROUGH BOOKLET IN IT'S ENTIRETY. PT READY FOR DISCHARGE YET STATES SHE DOESN'T FEEL WELL. ENCOURAGED PT TO VERBALIZE WITH HOSPITALIST HOW SHE WAS FEELING. SPOKE WITH MICHAEL JACK REGARDING PT NOT FEELING WELL.
--- NOTE | 2020-02-08 11:36 | NUR ---
Jo, IPR Director states the patient to funtional for IPR. SW met with the patient to discuss discharge plan. The patient is agreeable to receiving [facility] SW faxed referral. Awaiting response.
[2020-02-08] MEDS ORDERED: CORDARONE200 MG/TAB PO (11:45)
--- NOTE | 2020-02-08 11:46 | NUR ---
JIGNESH met with the patient to discuss possible placement for post acute rehab. The patient states she has been to [facility] and would like a referral. JIGNESH faxed referral and informed the team. A Covid-19 swab ordered. Will continue to monitor.
[2020-02-08 11:55] VITALS: BP 99/65; PULSE 95; TEMP 97.2
--- NOTE | 2020-02-08 13:25 | NUR ---
Laine from [facility] reports they can accept the patient for post acute rehab. SW informed the team.
--- NOTE | 2020-02-08 13:54 | NUR ---
JIGNESH contacted the patient's PCP and spoke to TANVIR Balderrama to provide an update. JIGNESH informed her that the patient is to go to post acute rehab at [facility], then transition home with [facility]. Will continue to monitor.
[2020-02-08 16:05] VITALS: BP 107/53; PULSE 75; TEMP 97.4
[2020-02-08 19:31] VITALS: BP 122/60; PULSE 75; TEMP 96.5
--- NOTE | 2020-02-08 20:09 | NUR ---
IN TO ASSESS PATIENT. SHE IS LAYING IN THE BED RATING HER PAIN AT A 2/10. PATIENT IS ALERT AND ORIENTATED. TOOK HS PILLS WITH NO DIFFICULTY. LUNG SOUNDS ARE CLEAR. BLE EDEMA AT 3+. CALL LIGHT WITHIN REACH
[2020-02-09 00:03] VITALS: BP 132/70; PULSE 75; TEMP 97.7
[2020-02-09 04:06] VITALS: BP 118/62; PULSE 76; TEMP 97.1
--- NOTE | 2020-02-09 04:55 | NUR ---
PATIENT HAD AN UNEVENTFUL NIGHT. SHE SLEPT THROUGH THE NIGHT AND DID NOT CALL FOR ANYTHING. TYLENOL AND A DOSE OF MORPHINE HELPED WITH HER PAIN AND DID NOT REPORT ANY MORE THROUGH THE SHIFT. PATIENT DENIES ANY NEEDS AT THIS TIME. WILL REPORT OFF TO DAY SHIFT
--- NOTE | 2020-02-09 06:40 | NUR ---
appears to be dozing and awakens easily, bedside shift report received from TANVIR Drew
[2020-02-09 07:22] LABS: BASO % 0.5 % (0.0-2.0); EOS % 0.3 % (0-4.0); GRAN # 2.4 (1.4-6.5); GRAN % 63.8 % (42.2-75.2); LYMPH # 0.9 (1.2-3.4); LYMPH % 23.6 % (20.0-51.0); MEAN CELL VOLUME 81 fl (80.0-100.0); MEAN CORPUSCULAR HGB CONC 30 g/dl (33.0-37.0); MEAN PLATELET VOLUME 9.4 fl (7.4-10.4); MONO # 0.4 (0.1-0.6); MONO % 11.5 % (1.7-9.3); PLATELET COUNT 190 K/mm3 (130-400); REDCELL DISTRIBUTION WIDTH-CV 17.2 % (11.5-14.5)
[2020-02-09 07:28] LABS: HEMATOCRIT 31.5 % (37.0-47.0); HEMOGLOBIN 9.5 g/dl (12.5-16.0); MEAN CORPUSCULAR HEMOGLOBIN 24 pg (27.0-31.0)
[2020-02-09 07:29] LABS: CALCIUM 8.9 mg/dL (8.4-10.2); CREATININE, serum 1.84 (0.52-1.25)
[2020-02-09 07:32] VITALS: BP 126/61; PULSE 77; TEMP 97.3
--- NOTE | 2020-02-09 08:15 | NUR ---
sitting up in bed visiting with , had breakfast and tolerated well, denies needs at this time
--- NOTE | 2020-02-09 09:10 | NUR ---
Dr Johnson and care team in to see patient, will plan discharge later today, full assessment done at this time, see interventions for further info, denies needs
--- NOTE | 2020-02-09 10:04 | NUR ---
JIGNESH faxed updates to Laine at [facility]. Will continue to follow.
--- NOTE | 2020-02-09 10:35 | NUR ---
physical therapy in to work with patient, ambulating out in the carmona and moves well
[2020-02-09 11:01] VITALS: BP 126/61; PULSE 77; TEMP 97.3
--- NOTE | 2020-02-09 11:22 | NUR ---
The patient is to tentatively discharge today, 02/08 to [facility] for a short care home stay. Laine states she will be able to provide nursing services and will evaluate the patient for PT/OT services. Laine reports they can transport at 1300. The team was in agreeance. SW to fax discharge orders. There are no additional needs at this time.
[2020-02-09] MEDS ORDERED: OMNICEF 300MG300 MG PO (11:28)
[2020-02-09] MEDS ORDERED: ALDACTONE 25MG25 M1 PO (11:28)
[2020-02-09] MEDS ORDERED: LOPRESSOR 225 MG/TAB PO (11:29)
[2020-02-09 11:49] VITALS: BP 111/61; PULSE 77; TEMP 97.8
--- NOTE | 2020-02-09 13:10 | NUR ---
discharged per WC
--- NOTE | 2020-02-09 13:23 | NUR ---
called to give report to nurse at [facility], raymundo have nurse call this nurse
--- NOTE | 2020-02-09 13:38 | NUR ---
report called to TANVIR Mccain at [facility]
== END 2020-02-09 13:10 | DRG 312 ==
LOC: COL.ER 18:08 → MEDICAL 19:44
PROVIDERS: Emergency Medicine; Internal Medicine Gastroenterology; Physician Assistant; Student in an Organized Health Care Education/Training Program; ADMIT Hospitalist
PROC: 0DB68ZX Excision of Stomach, Via Natural or Artificial Opening Endoscopic, Diagnostic (ICD-10-PCS; 2020-02-07)
PROC: 0DB38ZX Excision of Lower Esophagus, Via Natural or Artificial Opening Endoscopic, Diagnostic (ICD-10-PCS; principal; 2020-02-07 07:00)
DX: I95.2 Hypotension due to drugs (principal); I13.0 Hypertensive heart and chronic kidney disease with heart failure and stage 1 through stage 4 chronic kidney disease, or unspecified chronic kidney disease; I50.22 Chronic systolic (congestive) heart failure; N17.9 Acute kidney failure, unspecified; E87.1 Hypo-osmolality and hyponatremia; E87.2 Acidosis; I27.20 Pulmonary hypertension, unspecified; I48.91 Unspecified atrial fibrillation; E03.9 Hypothyroidism, unspecified; I49.5 Sick sinus syndrome; E78.5 Hyperlipidemia, unspecified; T50.2X5A Adverse effect of carbonic-anhydrase inhibitors, benzothiadiazides and other diuretics, initial encounter; K21.9 Gastro-esophageal reflux disease without esophagitis; N18.3 Chronic kidney disease, stage 3 (moderate); D53.9 Nutritional anemia, unspecified; R13.10 Dysphagia, unspecified; K29.70 Gastritis, unspecified, without bleeding; K22.4 Dyskinesia of esophagus; Z95.0 Presence of cardiac pacemaker; Z86.73 Personal history of transient ischemic attack (TIA), and cerebral infarction without residual deficits; Z79.01 Long term (current) use of anticoagulants
CPT/HCPCS: 99223-AI; 99233-AI; 99239; C9113; G0378; J2270; J2704; J3475; J7030; J7040

== ENCOUNTER → 2020-02-29 | Outpatient (CLI) | payer MEDICARE, BC ==
[2020-02-29 19:54] LABS: CALCIUM 9.6 mg/dL (8.4-10.2); CREATININE, serum 1.92 (0.52-1.25); POTASSIUM 4.8 mmol/L (3.4-5.0)
== END ==
LOC: ZCOL.LAB 18:56
PROVIDERS: Internal Medicine
DX: N18.3 Chronic kidney disease, stage 3 (moderate) (principal)